=== PATIENT | female | born 1940 | race Caucasian/White ===

== ENCOUNTER 2023-05-18 18:47 | Inpatient (IN) | payer OTHER ==
[2023-05-18 19:13] VITALS: BMI 29.7
[2023-05-18] MEDS ORDERED: ACETAMINOPHEN 1000 MG/100 ML BAG IVPB ONE (19:39)
[2023-05-18] MEDS ORDERED: ACETAMINOPHEN INJECTION 100 ML IVPB ONE (20:32)
[2023-05-18 21:01] LABS: BASO % 0.4 % (0-2.0); HEMATOCRIT 27.1 % (32.4-45.2); HEMOGLOBIN 9.2 GM/dL (10.7-15.3); LYMPH % 6.6 % (8-40); MCH 29.6 pg (25.7-33.7); MCHC 34.1 g/dl (32.0-36.0); MEAN CELL VOLUME 86.8 fl (80-96); MEAN PLT VOLUME 7.9 fl (7.5-11.1); MONO % 12.1 % (3.8-10.2); NEUT % 80.9 % (42.8-82.8); PLATELET COUNT 295 10^3/uL (134-434); RBC 3.12 M/mm3 (3.60-5.2); RDW 14.7 % (11.6-15.6); WHITE BLOOD COUNT 10.1 K/mm3 (4.0-10.0)
[2023-05-18 21:06] LABS: POTASSIUM 4.5 mmol/L (3.5-5.1)
[2023-05-18 21:08] LABS: CALCIUM 7.7 mg/dL (8.5-10.1)
[2023-05-18 21:09] LABS: ALBUMIN 3.7 g/dl (3.4-5.0); BLOOD UREA NITROGEN 29.6 mg/dL (7-18); INR 1.27 (0.83-1.09); PROTHROMBIN TIME (PATIENT) 14.7 SEC (9.7-13.0)
[2023-05-18 21:12] LABS: ACTIVATED PTT 28.8 SECONDS (25.2-36.5); CREATININE 1.3 mg/dL (0.55-1.3)
[2023-05-18 21:13] LABS: TOT PROT 6.8 g/dl (6.4-8.2)
[2023-05-18 22:01] LABS: EPI CELLS >36 /uL (0-25.1); HYALINE CASTS 3 /uL (0-3.1); URINE APPEARANCE CLEAR; URINE BACTERIA 1089 /uL (0-1359); URINE BILIRUBIN NEGATIVE (NEGATIVE); URINE COLOR YELLOW; URINE GLUCOSE (UA) NEGATIVE (NEGATIVE); URINE KETONE TRACE (NEGATIVE); URINE LEUK ESTERASE 2+ (NEGATIVE); URINE NITRITE NEGATIVE (NEGATIVE); URINE PROTEIN 2+ (NEGATIVE); URINE RBC 25 /uL (0-23.9); URINE UROBILINOGEN 0.2 mg/dL (0.2-1.0); URINE WBC 61 /uL (0-25.8)
[2023-05-18] MEDS ORDERED: PIPERACILLIN/TAZOB 4.5 GM 4.5 GM in DEXTROSE 5%-WATER 100 ML IVPB ONE (22:08)
[2023-05-18] MEDS ORDERED: VANCOMYCIN 1,000 MG in DEXTROSE 5%-WATER - 250 ML IVPB ONE (22:08)
[2023-05-18] MEDS ORDERED: PIPERACILLIN/TAZOB 4.5 GM 4.5 GM/100 ML BAG IVPB ONE (22:19)
[2023-05-18] MEDS ORDERED: VANCOMYCIN 1 GRAM (PRE-DOCKED) 1,000 MG/250 ML BAG IVPB ONE (23:00)
[2023-05-19] MEDS ORDERED: FUROSEMIDE 40 MG/4 ML INJECTABLE VIAL IVPUSH SCH (04:00)
[2023-05-19] MEDS: PIPERACILLIN/TAZOB 4.5 GM 4.5 GM in DEXTROSE 5%-WATER 100 ML IVPB SCH ×2 (06:02→12:57)
[2023-05-19] MEDS ORDERED: ACETAMINOPHEN 1000 MG/100 ML BAG IVPB ONE ×2 (06:33→22:30)
[2023-05-19 08:35] LABS: HEMATOCRIT 27.9 % (32.4-45.2); HEMOGLOBIN 9.2 GM/dL (10.7-15.3); MCH 29.5 pg (25.7-33.7); MCHC 33.2 g/dl (32.0-36.0); MEAN CELL VOLUME 88.8 fl (80-96); MEAN PLT VOLUME 7.9 fl (7.5-11.1); PLATELET COUNT 285 10^3/uL (134-434); RBC 3.14 M/mm3 (3.60-5.2); RDW 14.7 % (11.6-15.6); WHITE BLOOD COUNT 8.9 K/mm3 (4.0-10.0)
[2023-05-19 08:56] LABS: CALCIUM 7.9 mg/dL (8.5-10.1)
[2023-05-19 08:57] LABS: ALBUMIN 3.5 g/dl (3.4-5.0); BLOOD UREA NITROGEN 30.3 mg/dL (7-18); MAGNESIUM 1.2 mg/dL (1.8-2.4)
[2023-05-19 09:00] LABS: CREATININE 1.4 mg/dL (0.55-1.3); PHOSPHOROUS 3.5 mg/dL (2.5-4.9)
[2023-05-19 09:01] LABS: BILIRUBIN,TOTAL 1.4 mg/dL (0.2-1); TOT PROT 6.6 g/dl (6.4-8.2)
[2023-05-19] MEDS: LISINOPRIL 5 MG TABLET PO SCH (12:58)
[2023-05-19] MEDS: PANTOPRAZOLE 20 MG TABLET PO SCH (12:58)
[2023-05-19] MEDS: ENOXAPARIN NA (PORCINE) 40 MG/0.4 ML DISP.SYRIN SQ SCH (12:58)
[2023-05-19] MEDS: ASPIRIN 81 MG CHEWABLE TABLETS PO SCH (12:58)
[2023-05-19] MEDS: CEFTRIAXONE 1 GM in DEXTROSE 5%-WATER - 50 ML IVPB SCH (16:00)
[2023-05-19] MEDS ORDERED: MAGNESIUM 1GM/D5W - 1 GM/100 ML IVPB IVPB ONE (16:15)
[2023-05-19] MEDS: DOXYCYCLINE INJECTION 100 MG in DEXTROSE 5%-WATER 100 ML IVPB SCH (21:28)
[2023-05-19] MEDS: ATORVASTATIN CA 40 MG TABLET (FP) PO SCH (21:29)
[2023-05-19] MEDS: DONEPEZIL HCL 5 MG TABLET (FP) PO SCH (21:29)
[2023-05-20] MEDS ORDERED: PIPERACILLIN/TAZOB 4.5 GM 4.5 GM in DEXTROSE 5%-WATER 100 ML IVPB SCH (03:00)
[2023-05-20 08:47] LABS: HEMATOCRIT 28.8 % (32.4-45.2); HEMOGLOBIN 9.6 GM/dL (10.7-15.3); MCH 29.6 pg (25.7-33.7); MCHC 33.4 g/dl (32.0-36.0); MEAN CELL VOLUME 88.7 fl (80-96); MEAN PLT VOLUME 8.1 fl (7.5-11.1); PLATELET COUNT 267 10^3/uL (134-434); RBC 3.24 M/mm3 (3.60-5.2); RDW 14.8 % (11.6-15.6)
[2023-05-20 09:06] LABS: POTASSIUM 3.7 mmol/L (3.5-5.1)
[2023-05-20 09:09] LABS: BLOOD UREA NITROGEN 29.9 mg/dL (7-18); CALCIUM 7.8 mg/dL (8.5-10.1)
[2023-05-20 09:12] LABS: CREATININE 1.2 mg/dL (0.55-1.3)
[2023-05-20] MEDS ORDERED: ACETAMINOPHEN 1000 MG/100 ML BAG IVPB PRN (10:33)
[2023-05-20] MEDS: DOXYCYCLINE INJECTION 100 MG in DEXTROSE 5%-WATER 100 ML IVPB SCH ×2 (10:36→21:21)
[2023-05-20] MEDS: CEFTRIAXONE 1 GM in DEXTROSE 5%-WATER - 50 ML IVPB SCH (10:37)
[2023-05-20] MEDS: ASPIRIN 81 MG CHEWABLE TABLETS PO SCH (10:37)
[2023-05-20] MEDS: PANTOPRAZOLE 20 MG TABLET PO SCH (10:37)
[2023-05-20] MEDS: ENOXAPARIN NA (PORCINE) 40 MG/0.4 ML DISP.SYRIN SQ SCH (10:37)
[2023-05-20] MEDS: LISINOPRIL 5 MG TABLET PO SCH (10:37)
[2023-05-20] MEDS ORDERED: SODIUM CHLORIDE 1,000 ML IV SCH ×2 (13:15)
[2023-05-20] MEDS: QUEtiapine FUMARATE 50 MG TABLET PO SCH (21:21)
[2023-05-20] MEDS: ATORVASTATIN CA 40 MG TABLET (FP) PO SCH (21:22)
[2023-05-20] MEDS: DONEPEZIL HCL 5 MG TABLET (FP) PO SCH (21:22)
[2023-05-21 09:09] LABS: HEMATOCRIT 27.2 % (32.4-45.2); HEMOGLOBIN 9.3 GM/dL (10.7-15.3); MCH 29.7 pg (25.7-33.7); MEAN CELL VOLUME 87.3 fl (80-96); PLATELET COUNT 241 10^3/uL (134-434); RBC 3.12 M/mm3 (3.60-5.2); RDW 14.7 % (11.6-15.6); WHITE BLOOD COUNT 3.4 K/mm3 (4.0-10.0)
[2023-05-21 09:25] LABS: POTASSIUM 3.7 mmol/L (3.5-5.1)
[2023-05-21 09:28] LABS: CALCIUM 7.9 mg/dL (8.5-10.1)
[2023-05-21 09:29] LABS: BLOOD UREA NITROGEN 24.8 mg/dL (7-18)
[2023-05-21 09:32] LABS: CREATININE 1.1 mg/dL (0.55-1.3)
[2023-05-21] MEDS: ATORVASTATIN CA 40 MG TABLET (FP) PO SCH (09:42)
[2023-05-21] MEDS: ASPIRIN 81 MG CHEWABLE TABLETS PO SCH (09:42)
[2023-05-21] MEDS: busPIRone HCL 5 MG TABLET PO SCH (09:42)
[2023-05-21] MEDS: PANTOPRAZOLE 20 MG TABLET PO SCH (09:42)
[2023-05-21] MEDS: LISINOPRIL 20 MG TABLET PO SCH (09:42)
[2023-05-21] MEDS: ENOXAPARIN NA (PORCINE) 40 MG/0.4 ML DISP.SYRIN SQ SCH (09:43)
[2023-05-21] MEDS: CEFTRIAXONE 1 GM in DEXTROSE 5%-WATER - 50 ML IVPB SCH (09:43)
[2023-05-21] MEDS: DOXYCYCLINE INJECTION 100 MG in DEXTROSE 5%-WATER 100 ML IVPB SCH ×2 (10:25→21:35)
[2023-05-21] MEDS: DONEPEZIL HCL 5 MG TABLET (FP) PO SCH (21:35)
[2023-05-21] MEDS: QUEtiapine FUMARATE 50 MG TABLET PO SCH (21:35)
[2023-05-22 08:32] LABS: BASO % 0.6 % (0-2.0); EOS % 5.3 % (0-4.5); HEMATOCRIT 28.6 % (32.4-45.2); HEMOGLOBIN 9.4 GM/dL (10.7-15.3); LYMPH % 17.4 % (8-40); MCH 29.2 pg (25.7-33.7); MCHC 32.9 g/dl (32.0-36.0); MEAN CELL VOLUME 88.5 fl (80-96); MONO % 13.4 % (3.8-10.2); NEUT % 63.3 % (42.8-82.8); PLATELET COUNT 296 10^3/uL (134-434); RBC 3.23 M/mm3 (3.60-5.2); RDW 14.4 % (11.6-15.6); WHITE BLOOD COUNT 6.1 K/mm3 (4.0-10.0)
[2023-05-22 08:50] LABS: BLOOD UREA NITROGEN 25.7 mg/dL (7-18)
[2023-05-22 08:51] LABS: CALCIUM 8.3 mg/dL (8.5-10.1)
[2023-05-22 08:53] LABS: CREATININE 0.9 mg/dL (0.55-1.3)
[2023-05-22] MEDS: LISINOPRIL 20 MG TABLET PO SCH (09:57)
[2023-05-22] MEDS: PANTOPRAZOLE 20 MG TABLET PO SCH (09:57)
[2023-05-22] MEDS: ATORVASTATIN CA 40 MG TABLET (FP) PO SCH (09:57)
[2023-05-22] MEDS: ASPIRIN 81 MG CHEWABLE TABLETS PO SCH (09:57)
[2023-05-22] MEDS: busPIRone HCL 5 MG TABLET PO SCH (09:57)
[2023-05-22] MEDS: ENOXAPARIN NA (PORCINE) 40 MG/0.4 ML DISP.SYRIN SQ SCH (09:58)
[2023-05-22] MEDS: CEFTRIAXONE 1 GM in DEXTROSE 5%-WATER - 50 ML IVPB SCH ×2 (11:08→22:32)
[2023-05-22] MEDS: DOXYCYCLINE HYCLATE 100 MG CAPSULE PO SCH (18:05)
[2023-05-22] MEDS: QUEtiapine FUMARATE 50 MG TABLET PO SCH (21:37)
[2023-05-22] MEDS: DONEPEZIL HCL 5 MG TABLET (FP) PO SCH (21:38)
[2023-05-22] MEDS: DOXYCYCLINE INJECTION 100 MG in DEXTROSE 5%-WATER 100 ML IVPB SCH (22:34)
[2023-05-23 05:33] VITALS: RESP 18; TEMP 98.7
[2023-05-23 07:41] LABS: HEMATOCRIT 27.7 % (32.4-45.2); HEMOGLOBIN 9.1 GM/dL (10.7-15.3); MCH 28.9 pg (25.7-33.7); MCHC 32.7 g/dl (32.0-36.0); MEAN CELL VOLUME 88.4 fl (80-96); MEAN PLT VOLUME 7.5 fl (7.5-11.1); PLATELET COUNT 314 10^3/uL (134-434); RBC 3.13 M/mm3 (3.60-5.2); RDW 14.2 % (11.6-15.6)
[2023-05-23 07:58] LABS: POTASSIUM 3.9 mmol/L (3.5-5.1)
[2023-05-23 07:59] LABS: CALCIUM 8.3 mg/dL (8.5-10.1)
[2023-05-23 08:00] LABS: BLOOD UREA NITROGEN 20.8 mg/dL (7-18)
[2023-05-23 08:03] LABS: CREATININE 0.9 mg/dL (0.55-1.3)
[2023-05-23] MEDS: ASPIRIN 81 MG CHEWABLE TABLETS PO SCH (09:50)
[2023-05-23] MEDS: LISINOPRIL 20 MG TABLET PO SCH (09:51)
[2023-05-23] MEDS: DOXYCYCLINE HYCLATE 100 MG CAPSULE PO SCH (09:51)
[2023-05-23] MEDS: CEFTRIAXONE 1 GM in DEXTROSE 5%-WATER - 50 ML IVPB SCH (09:51)
[2023-05-23] MEDS: PANTOPRAZOLE 20 MG TABLET PO SCH (09:51)
[2023-05-23] MEDS: ENOXAPARIN NA (PORCINE) 40 MG/0.4 ML DISP.SYRIN SQ SCH (09:51)
[2023-05-23] MEDS: busPIRone HCL 5 MG TABLET PO SCH (09:51)
[2023-05-23] MEDS: ATORVASTATIN CA 40 MG TABLET (FP) PO SCH (09:52)
[2023-05-23 10:44] VITALS: BP 122/62; PULSE 79
== END 2023-05-23 13:33 | disposition home or self-care (01) | DRG 871 ==
LOC: JER 18:47 → JERBED 22:29 → J7W 23:30
PROVIDERS: ADMIT Internal Medicine; ATTEND Internal Medicine
DX: A41.9 Sepsis, unspecified organism (principal); G93.41 Metabolic encephalopathy; J18.9 Pneumonia, unspecified organism; I50.22 Chronic systolic (congestive) heart failure; F03.90 Unspecified dementia, unspecified severity, without behavioral disturbance, psychotic disturbance, mood disturbance, and anxiety; I11.0 Hypertensive heart disease with heart failure; I25.10 Atherosclerotic heart disease of native coronary artery without angina pectoris; E78.5 Hyperlipidemia, unspecified; D72.829 Elevated white blood cell count, unspecified; F20.9 Schizophrenia, unspecified; E11.65 Type 2 diabetes mellitus with hyperglycemia
CPT/HCPCS: 0241U-QW; 36415; 70450-TC; 71045-TC-FY; 71250-TC; 80048; 80053; 81003; 82550; 83605; 83735; 83880; 84100; 84484; 85025; 85027; 85610; 85730; 86850; 86900; 86901; 87040; 87086; 87324; 87449; 87635; 87899; 93005; 93010; 93306-TC; 99285-25